=== PATIENT | male | born 1985 | race Caucasian/White ===

== ENCOUNTER 2021-06-20 14:10 | Outpatient (CLI) | payer OTHER, SELFPAY ==
[2021-06-20 16:58] LABS: SARS-CoV-2 RNA PCR Negative (Negative)
== END 2021-06-20 14:11 | disposition home or self-care (01) ==
LOC: CHSLAB 14:19
PROVIDERS: PCP Family Medicine; Visit Provider Family Medicine
DX: R50.9 Fever, unspecified (principal); Z20.822 Contact with and (suspected) exposure to COVID-19
CPT/HCPCS: C9803; U0003; U0005